=== PATIENT | male | born 1975 | race Caucasian/White ===

== ENCOUNTER 2017-06-12 11:19 | Outpatient (CLI) | payer BC ==
[~2017-06-12 11:19] MED LIST: LANS30CA10 PO; LIP10 PO
== END 2017-06-12 17:13 | disposition home or self-care (01) ==
LOC: SMI 11:19
PROVIDERS: ATTEND Orthopaedic Surgery
DX: S93.492A Sprain of other ligament of left ankle, initial encounter (principal); X58.XXXA Exposure to other specified factors, initial encounter; Y93.89 Activity, other specified; Y92.89 Other specified places as the place of occurrence of the external cause; Y99.8 Other external cause status
CPT/HCPCS: 73721

== ENCOUNTER 2021-09-13 09:45 | Emergency (ER) | payer OTHER, BC ==
[~2021-09-13] VITALS: Ht 182.9 cm; Wt 99.8 kg
[~2021-09-13 09:45] MED LIST changes: -LANS30CA10 PO; +LANS30CA53 PO
[2021-09-13 09:55] VITALS: BP_SYST 137
[2021-09-13] MEDS ORDERED: NALO4SPR NS (10:27)
[2021-09-13] MEDS ORDERED: CLON1TAB12 PO (10:27)
[2021-09-13] MEDS ORDERED: HYDR-3917 PO (10:27)
[2021-09-13 10:45] VITALS: BP_SYST 137
== END 2021-09-13 10:44 | disposition home or self-care (01) ==
LOC: SED 09:45
DX: M54.50 Low back pain, unspecified (principal); Z79.899 Other long term (current) drug therapy
CPT/HCPCS: 99283